=== PATIENT | male | born 1970 | race Hispanic/Latino ===

== ENCOUNTER 2020-06-10 23:01 | Inpatient (IN) | payer OTHER ==
[~2020-06-10] VITALS: Ht 170.2 cm; Wt 93.5 kg
[2020-06-11 00:36] LABS: CREATININE 1.3 mg/dL (0.5-1.5)
[2020-06-11 00:38] LABS: INR 1.41 (0.85-1.15); PROTHROMBIN TIME 14.6 SEC (9.6-11.6)
[2020-06-11] MEDS ORDERED: ACETAMINOPHEN EXTRA STRENGTH 500 MG TABLET ONE (00:38)
[2020-06-11 00:40] LABS: ALBUMIN 1.7 g/dL (3.5-5.0); BILIRUBIN,DIRECT 0.2 mg/dL (0.0-0.3); BILIRUBIN,TOTAL 0.6 mg/dL (0.2-1.0); MAGNESIUM 1.5 mg/dL (1.80-2.40); PARTIAL THROMBOPLASTIN TIME 33.2 SEC (26.3-35.5); PHOSPHORUS 3.7 mg/dL (2.5-4.9); TOTAL PROTEIN, SERUM 6.2 g/dL (6.0-8.3)
[2020-06-11 01:02] LABS: BASOPHILS % (AUTO) 0.5 % (0.0-5.0); EOSINOPHILS % (AUTO) 3.1 % (0.0-8.0); MEAN CORPUSCULAR HEMOGLOBIN 18.4 pg (27.0-33.0); MEAN CORPUSCULAR HGB CONC 26.6 g/dL (32.0-36.0); MEAN CORPUSCULAR VOLUME 69.1 fL (79-99); MONOCYTES % (AUTO) 6.2 % (3.0-13.0); NEUTROPHILS % (AUTO) 72.7 % (40.0-77.0); PLATELET COUNT (AUTO) 167 K/uL (130-400); RED BLOOD CELL COUNT(AUTO) 2.88 MIL/uL (4.50-6.20); RED CELL DISTRIBUTION WIDTH 18.4 % (11.0-15.5); WHITE BLOOD COUNT (AUTO) 9.2 K/uL (4.8-10.8)
[2020-06-11 01:04] LABS: HEMATOCRIT 19.9 % (42-54)
[2020-06-11] MEDS ORDERED: PANTOPRAZOLE 40 MG/VIAL ONE ×2 (02:27→02:28)
[2020-06-11] MEDS ORDERED: SODIUM CHLORIDE 0.9% 200 ML IV ONE (02:29)
[2020-06-11] MEDS ORDERED: ONDANSETRON HCL 4 MG/2 ML VIAL IV PRN (03:30)
[2020-06-11] MEDS ORDERED: ACETAMINOPHEN 325 MG TAB PO PRN ×2 (03:30)
[2020-06-11] MEDS: LEVOFLOXACIN 500 MG/D5W 100 ML 100 ML IV SCH (06:00)
[2020-06-11] MEDS ORDERED: SODIUM CHLORIDE 0.9% 250 ML IV ONE (06:23)
[2020-06-11] MEDS ORDERED: ALBUMIN (HUMAN) 25% 200 ML IV SCH (09:00)
[2020-06-11 09:03] LABS: APPEARANCE,URINE Clear (CLEAR); BILIRUBIN,URINE Negative (NEGATIVE); COLOR,URINE Yellow (YELLOW); GLUCOSE, URINE (UA) Negative (NEGATIVE); KETONES,URINE Negative (NEGATIVE); LEUKOCYTE ESTERASE ,URINE Negative (NEGATIVE); NITRATE,URINE Negative (NEGATIVE); OCCULT BLOOD,URINE Negative (NEGATIVE); PROTEIN,URINE Negative (NEGATIVE)
[2020-06-11 09:09] LABS: AMPHET/METH SCREEN,URINE NEGATIVE (NEGATIVE); BARBITURATE SCREEN, URINE NEGATIVE (NEGATIVE); BENZODIAZEPINES SCREEN,URINE NEGATIVE (NEGATIVE); CANNABINOID SCREEN,URINE NEGATIVE (NEGATIVE); COCAINE SCREEN,URINE NEGATIVE (NEGATIVE); OPIATE SCREEN,URINE NEGATIVE (NEGATIVE); PHENCYCLIDINE SCREEN,URINE NEGATIVE (NEGATIVE)
[2020-06-11] MEDS ORDERED: ALBUMIN (HUMAN) 25% 200 ML IV ONE (09:31)
[2020-06-11 11:45] VITALS: BP 96/61
[2020-06-11] MEDS ORDERED: PEG 3350/NA SULF,BICARB,CL/KCL 4000 ML SOLN PO SCH (12:45)
[2020-06-11 13:37] LABS: HEMATOCRIT 24.2 % (42-54)
[2020-06-11 13:50] LABS: MAGNESIUM 1.6 mg/dL (1.80-2.40); POTASSIUM 3.2 mmol/L (3.5-5.1)
[2020-06-11] MEDS: PANTOPRAZOLE SODIUM 80 MG in SODIUM CHLORIDE 0.9% 100 ML IV SCH (13:55)
[2020-06-11] MEDS: OCTREOTIDE ACETATE 1,250 MCG in SODIUM CHLORIDE 0.9% 250 ML IV SCH (13:56)
[2020-06-11] MEDS: POTASSIUM CHLORIDE 20MEQ/100ML 100 ML IV PRN ×2 (14:08→17:07)
[2020-06-11] MEDS: MAGNESIUM 2GM PREMIX 50ML 50 ML IV PRN (14:08)
[2020-06-11 15:02] LABS: ALBUMIN,BODY FLUID 0.4 g/dL
[2020-06-11 16:25] VITALS: BP 97/57
[2020-06-11 16:49] LABS: HEMATOCRIT 23.9 % (42-54)
[2020-06-11] MEDS: LIDOCAINE HCL-MPF 1% 2ML VIAL IV PRN (17:09)
[2020-06-11 17:59] LABS: APPEARANCE BODY FLUID SLIGHTLY CLOUDY (CLEAR); COLOR,BODY FLUID LT YELLOW (LT YELLOW); SPECIMENTYPE,BODY FLUID ASCITES; TOTAL VOLUME,BODY FLUID 1600 mL
[2020-06-11 18:01] LABS: BODY FLUID WBC 22 /cu. mm.
[2020-06-11 18:02] LABS: BODY FLUID RBC 10 /cu. mm.
[2020-06-11 18:19] LABS: BF LYMPHOCYTE 11 %; BF MONOCYTE 3 %
[2020-06-11] MEDS ORDERED: LISI1TAB51 PO (18:54)
[2020-06-11 20:00] VITALS: BP 99/62
[2020-06-11] MEDS ORDERED: SODIUM CHLORIDE 0.9% 500ML 500 ML IV ONE (23:27)
[2020-06-12] VITALS (26 sets, daily range): BP systolic 81–125; BP diastolic 50–70
[2020-06-12] MEDS: LEVOFLOXACIN 500 MG/D5W 100 ML 100 ML IV SCH (06:38)
[2020-06-12] MEDS: PANTOPRAZOLE SODIUM 80 MG in SODIUM CHLORIDE 0.9% 100 ML IV SCH ×2 (08:26→17:25)
[2020-06-12 11:24] LABS: HEMATOCRIT 28.5 % (42-54)
[2020-06-12] MEDS ORDERED: COMPOUND IV REFRIGERATED 1 EACH IVSOLN MISC PRN (12:30)
[2020-06-12] MEDS ORDERED: PROPOFOL 10 MG/ML 20ML VIAL IV ONE (12:41)
[2020-06-12] MEDS ORDERED: EPHEDRINE SULFATE 50 MG/ML AMPULE ONE (12:43)
[2020-06-12 16:31] LABS: MAGNESIUM 1.7 mg/dL (1.80-2.40); POTASSIUM 3.3 mmol/L (3.5-5.1)
[2020-06-12] MEDS: POTASSIUM CHLORIDE 20MEQ/100ML 100 ML IV PRN (17:26)
[2020-06-12] MEDS: LIDOCAINE HCL-MPF 1% 2ML VIAL IV PRN (17:26)
[2020-06-12] MEDS: MAGNESIUM 2GM PREMIX 50ML 50 ML IV PRN (17:26)
[2020-06-13] VITALS (7 sets, daily range): BP systolic 94–145; BP diastolic 58–75
[2020-06-13] MEDS: LEVOFLOXACIN 500 MG/D5W 100 ML 100 ML IV SCH (06:05)
[2020-06-13] MEDS: PANTOPRAZOLE SODIUM 80 MG in SODIUM CHLORIDE 0.9% 100 ML IV SCH (09:09)
[2020-06-13] MEDS: OCTREOTIDE ACETATE 1,250 MCG in SODIUM CHLORIDE 0.9% 250 ML IV SCH (09:10)
[2020-06-14 04:00] VITALS: BP 98/68
[2020-06-14] MEDS: LEVOFLOXACIN 500 MG/D5W 100 ML 100 ML IV SCH (05:40)
[2020-06-14 08:01] VITALS: BP 91/65
[2020-06-14 11:47] VITALS: BP 108/72
[2020-06-14 15:39] VITALS: BP 96/68
[2020-06-14 19:31] VITALS: BP 110/54
[2020-06-14 23:36] VITALS: BP 95/64
[2020-06-15 03:56] VITALS: BP 96/67
[2020-06-15] MEDS: LEVOFLOXACIN 500 MG/D5W 100 ML 100 ML IV SCH (05:32)
[2020-06-15 05:49] LABS: BASOPHILS % (AUTO) 0.9 % (0.0-5.0); EOSINOPHILS % (AUTO) 5.7 % (0.0-8.0); HEMATOCRIT 30.7 % (42-54); MEAN CORPUSCULAR HEMOGLOBIN 21.8 pg (27.0-33.0); MEAN CORPUSCULAR HGB CONC 29.3 g/dL (32.0-36.0); MEAN CORPUSCULAR VOLUME 74.3 fL (79-99); MONOCYTES % (AUTO) 6.4 % (3.0-13.0); NEUTROPHILS % (AUTO) 60.7 % (40.0-77.0); PLATELET COUNT (AUTO) 170 K/uL (130-400); RED BLOOD CELL COUNT(AUTO) 4.13 MIL/uL (4.50-6.20); RED CELL DISTRIBUTION WIDTH 20.2 % (11.0-15.5); WHITE BLOOD COUNT (AUTO) 6.7 K/uL (4.8-10.8)
[2020-06-15 06:17] LABS: ALBUMIN 1.4 g/dL (3.5-5.0); BILIRUBIN,TOTAL 0.7 mg/dL (0.2-1.0); CREATININE 0.8 mg/dL (0.5-1.5); POTASSIUM 3.2 mmol/L (3.5-5.1)
[2020-06-15 07:21] LABS: INR 1.3 (0.85-1.15); PROTHROMBIN TIME 13.6 SEC (9.6-11.6)
[2020-06-15 07:22] LABS: PARTIAL THROMBOPLASTIN TIME 38.7 SEC (26.3-35.5)
[2020-06-15 08:13] VITALS: BP 97/61
[2020-06-15] MEDS: LIDOCAINE HCL-MPF 1% 2ML VIAL IV PRN ×2 (09:40→17:47)
[2020-06-15] MEDS: POTASSIUM CHLORIDE 20MEQ/100ML 100 ML IV PRN ×2 (09:40→17:47)
[2020-06-15 11:40] VITALS: BP 100/72
[2020-06-15 16:54] VITALS: BP 100/74
[2020-06-15 20:19] VITALS: BP 96/68
[2020-06-15 23:23] VITALS: BP 92/67
[2020-06-16] VITALS (13 sets, daily range): BP systolic 87–117; BP diastolic 46–68
[2020-06-16] MEDS: MAGNESIUM 2GM PREMIX 50ML 50 ML IV PRN (03:33)
[2020-06-16] MEDS: LEVOFLOXACIN 500 MG/D5W 100 ML 100 ML IV SCH (05:49)
[2020-06-16 07:24] LABS: HEMATOCRIT 30.8 % (42-54); MEAN CORPUSCULAR HEMOGLOBIN 22.1 pg (27.0-33.0); MEAN CORPUSCULAR HGB CONC 29.5 g/dL (32.0-36.0); MEAN CORPUSCULAR VOLUME 74.9 fL (79-99); RED BLOOD CELL COUNT(AUTO) 4.11 MIL/uL (4.50-6.20); RED CELL DISTRIBUTION WIDTH 21.1 % (11.0-15.5); WHITE BLOOD COUNT (AUTO) 6.8 K/uL (4.8-10.8)
[2020-06-16 07:31] LABS: CREATININE 0.8 mg/dL (0.5-1.5); POTASSIUM 3.9 mmol/L (3.5-5.1)
[2020-06-16 07:44] LABS: INR 1.32 (0.85-1.15); PROTHROMBIN TIME 13.8 SEC (9.6-11.6)
[2020-06-16 07:46] LABS: PARTIAL THROMBOPLASTIN TIME 39.4 SEC (26.3-35.5)
[2020-06-16] MEDS ORDERED: FERROUS SULFATE 325 MG TABLET.DR PO SCH (09:00)
[2020-06-16] MEDS ORDERED: ALBUMIN (HUMAN) 25% 200 ML IV SCH (10:15)
[2020-06-16 12:37] LABS: APPEARANCE BODY FLUID CLEAR (CLEAR); COLOR,BODY FLUID YELLOW (LT YELLOW); SPECIMENTYPE,BODY FLUID ASCITES
[2020-06-16 12:38] LABS: BODY FLUID RBC 34 /cu. mm.; BODY FLUID WBC 49 /cu. mm.; TOTAL VOLUME,BODY FLUID 15000 mL
[2020-06-16 12:54] LABS: BF EOSINOPHIL 1 %; BF LYMPHOCYTE 22 %; BF MESOTHELIAL 28 %; BF MONOCYTE 29 %
[2020-06-16] MEDS ORDERED: CLIN300C10 PO (20:13)
[2020-06-16] MEDS ORDERED: FERR324T4 PO (20:14)
== END 2020-06-17 00:40 | disposition home or self-care (01) | DRG 432 ==
LOC: EDH 23:01 → EDHIP 23:02 → 4CH 06-11 11:54
PROVIDERS: ADMIT Family Medicine; ATTEND Family Medicine
PROC: 0W9G3ZZ Drainage of Peritoneal Cavity, Percutaneous Approach (ICD-10-PCS; 2020-06-11)
PROC: 0DJD8ZZ Inspection of Lower Intestinal Tract, Via Natural or Artificial Opening Endoscopic (ICD-10-PCS; 2020-06-12)
PROC: 0DB98ZX Excision of Duodenum, Via Natural or Artificial Opening Endoscopic, Diagnostic (ICD-10-PCS; 2020-06-12)
PROC: 0DB68ZZ Excision of Stomach, Via Natural or Artificial Opening Endoscopic (ICD-10-PCS; 2020-06-12)
PROC: 30233K1 Transfusion of Nonautologous Frozen Plasma into Peripheral Vein, Percutaneous Approach (ICD-10-PCS; principal; 2020-06-13)
PROC: 30233N1 Transfusion of Nonautologous Red Blood Cells into Peripheral Vein, Percutaneous Approach (ICD-10-PCS; 2020-06-13)
PROC: 0W9G3ZZ Drainage of Peritoneal Cavity, Percutaneous Approach (ICD-10-PCS; 2020-06-16)
DX: K70.31 Alcoholic cirrhosis of liver with ascites (principal); E43 Unspecified severe protein-calorie malnutrition; K76.6 Portal hypertension; E87.6 Hypokalemia; E83.42 Hypomagnesemia; K31.89 Other diseases of stomach and duodenum; K31.7 Polyp of stomach and duodenum; D50.9 Iron deficiency anemia, unspecified; K29.50 Unspecified chronic gastritis without bleeding; I10 Essential (primary) hypertension; Z20.828 Contact with and (suspected) exposure to other viral communicable diseases; S00.03XA Contusion of scalp, initial encounter; W19.XXXA Unspecified fall, initial encounter; Y93.89 Activity, other specified; Y92.89 Other specified places as the place of occurrence of the external cause; Y99.8 Other external cause status; Z88.0 Allergy status to penicillin
CPT/HCPCS: 36415; 43239; 43251; 45378; 49083; 70450; 71045; 72125; 80048; 80053; 80076; 80305; 81003; 82040; 82042; 83735; 83880; 84100; 84132; 84157; 84484; 85014; 85018; 85025; 85027; 85610; 85730; 86850; 86900; 86901; 86923; 86927; 87071; 87077; 87186; 87205; 87426; 89051; 96365; 97039; C9113; G0378; J1956; J2354; J2405; J2704; J3475; J3480; J3490; J7030; J7040; J7050; P9016; P9017; P9046; U0003

== ENCOUNTER → 2020-07-18 | Outpatient (CLI) | payer SELFPAY ==
[~2020-07-18] MED LIST: ALBUMIN (HUMAN) 25% 200 ML IV SCH; CLIN300C10 PO; FERR324T4 PO; FERR325T22 PO; FURO20TA4 PO; LISI1TAB51 PO; PANT40TA54 PO; POTA20TA82 PO; SPIR50TA5 PO; SUCR1TAB2 PO
[2020-07-18 10:18] LABS: BASOPHILS % (AUTO) 1.1 % (0.0-5.0); EOSINOPHILS % (AUTO) 7.9 % (0.0-8.0); HEMATOCRIT 26.5 % (42-54); MEAN CORPUSCULAR HEMOGLOBIN 24.2 pg (27.0-33.0); MEAN CORPUSCULAR HGB CONC 29.4 g/dL (32.0-36.0); MEAN CORPUSCULAR VOLUME 82.3 fL (79-99); MONOCYTES % (AUTO) 5.3 % (3.0-13.0); NEUTROPHILS % (AUTO) 60.5 % (40.0-77.0); PLATELET COUNT (AUTO) 260 K/uL (130-400); RED BLOOD CELL COUNT(AUTO) 3.22 MIL/uL (4.50-6.20); RED CELL DISTRIBUTION WIDTH 20.7 % (11.0-15.5); WHITE BLOOD COUNT (AUTO) 5.5 K/uL (4.8-10.8)
[2020-07-18 10:32] LABS: INR 1.24 (0.85-1.15); PROTHROMBIN TIME 13.3 SEC (9.6-11.6)
[2020-07-18 10:33] LABS: ALBUMIN 1.9 g/dL (3.5-5.0); BILIRUBIN,TOTAL 0.8 mg/dL (0.2-1.0); POTASSIUM 4.8 mmol/L (3.5-5.1); TOTAL PROTEIN, SERUM 6.5 g/dL (6.0-8.3)
[2020-07-18 16:39] LABS: ALBUMIN,BODY FLUID < 0.6 g/dL
[2020-07-18 17:20] LABS: APPEARANCE BODY FLUID SLIGHTLY CLOUDY (CLEAR); COLOR,BODY FLUID YELLOW (LT YELLOW); SPECIMENTYPE,BODY FLUID ASCITES; TOTAL VOLUME,BODY FLUID 15000 mL
[2020-07-18 17:21] LABS: BODY FLUID RBC 3 /cu. mm.; BODY FLUID WBC 17 /cu. mm.
[2020-07-18 17:23] LABS: BF BASOPHIL 1 %; BF LYMPHOCYTE 77 %; BF MESOTHELIAL 11 %; BF MONOCYTE 3 %
== END ==
LOC: RAH 08:58
PROVIDERS: ATTEND Internal Medicine Gastroenterology
DX: K70.31 Alcoholic cirrhosis of liver with ascites (principal); E43 Unspecified severe protein-calorie malnutrition; K76.6 Portal hypertension; I10 Essential (primary) hypertension; D50.9 Iron deficiency anemia, unspecified; Z88.1 Allergy status to other antibiotic agents; Z79.01 Long term (current) use of anticoagulants
CPT/HCPCS: 36415; 49083; 80053; 82042; 84157; 85025; 85610; 87071; 87205; 88112; 88305; 89051; A4215; 96365; P9046

== ENCOUNTER 2020-08-04 17:03 | Observation (INO) | payer OTHER, SELFPAY ==
[~2020-08-04] VITALS: Ht 172.7 cm; Wt 68.0 kg
[~2020-08-04 17:03] MED LIST changes: -ALBUMIN (HUMAN) 25% 200 ML IV SCH; -FERR325T22 PO; -FURO20TA4 PO; -PANT40TA54 PO; -POTA20TA82 PO; -SPIR50TA5 PO; -SUCR1TAB2 PO
[2020-08-04 18:31] LABS: BASOPHILS % (AUTO) 1.2 % (0.0-5.0); EOSINOPHILS % (AUTO) 0.5 % (0.0-8.0); LYMPHOCYTES % (AUTO) 18.7 % (21.0-51.0); MEAN CORPUSCULAR HEMOGLOBIN 26.3 pg (27.0-33.0); MEAN CORPUSCULAR HGB CONC 31.8 g/dL (32.0-36.0); MEAN CORPUSCULAR VOLUME 82.7 fL (79-99); MONOCYTES % (AUTO) 4.9 % (3.0-13.0); NEUTROPHILS % (AUTO) 74.4 % (40.0-77.0); PLATELET COUNT (AUTO) 266 K/uL (130-400); RED BLOOD CELL COUNT(AUTO) 4.11 MIL/uL (4.50-6.20); RED CELL DISTRIBUTION WIDTH 20.3 % (11.0-15.5); WHITE BLOOD COUNT (AUTO) 6.5 K/uL (4.8-10.8)
[2020-08-04] MEDS ORDERED: CEFTRIAXONE SODIUM 1 GM ONE (18:41)
[2020-08-04] MEDS ORDERED: AZITHROMYCIN 500MG+NS 250ML 250 ML IV ONE (18:41)
[2020-08-04] MEDS ORDERED: SODIUM CHLORIDE 0.9% 50 ML IV ONE ×2 (18:42→19:38)
[2020-08-04 18:44] LABS: INR 1.27 (0.85-1.15); PROTHROMBIN TIME 13.5 SEC (9.6-11.6)
[2020-08-04 18:45] LABS: PARTIAL THROMBOPLASTIN TIME 34.5 SEC (26.3-35.5)
[2020-08-04 18:48] LABS: ALBUMIN 2.1 g/dL (3.5-5.0); BILIRUBIN,TOTAL 0.8 mg/dL (0.2-1.0); CREATININE 1.1 mg/dL (0.5-1.5); POTASSIUM 3.9 mmol/L (3.5-5.1); TOTAL PROTEIN, SERUM 6.3 g/dL (6.0-8.3)
[2020-08-04] MEDS ORDERED: SODIUM CHLORIDE 0.9% 1000ML 1,000 ML IV ONE (19:37)
[2020-08-04] MEDS ORDERED: ACETAMINOPHEN 325 MG TAB PO PRN (21:15)
[2020-08-04] MEDS ORDERED: ONDANSETRON HCL 4 MG/2 ML VIAL IV PRN (21:15)
[2020-08-05] MEDS ORDERED: FAMOTIDINE/PF 20 MG/2 ML VIAL IV SCH (09:00)
[2020-08-05] MEDS ORDERED: LACTULOSE 20 GM/30 ML UDCUP ONE ×2 (09:55→21:16)
[2020-08-05] MEDS ORDERED: FUROSEMIDE 10 MG/ML 4ML VIAL ONE (09:55)
[2020-08-05] MEDS ORDERED: FAMOTIDINE/PF 20 MG/2 ML VIAL IV ONE ×2 (09:56→21:17)
[2020-08-05] MEDS ORDERED: SPIRONOLACTONE 25 MG TAB ONE ×2 (09:56→21:17)
[2020-08-05] MEDS ORDERED: ALBUMIN (HUMAN) 25% 200 ML IV ONE (10:53)
[2020-08-05 14:31] LABS: GLUCOSE,BODY FLUID 82 mg/dL (1-40)
[2020-08-05 15:32] LABS: APPEARANCE BODY FLUID CLEAR (CLEAR); COLOR,BODY FLUID YELLOW (LT YELLOW); SPECIMENTYPE,BODY FLUID ASCITES
[2020-08-05 15:33] LABS: BODY FLUID RBC 8 /cu. mm.; BODY FLUID WBC 9 /cu. mm.; TOTAL VOLUME,BODY FLUID 15000 mL
[2020-08-05 16:35] LABS: BF EOSINOPHIL 1 %; BF LYMPHOCYTE 50 %; BF MESOTHELIAL 25 %; BF MONOCYTE 3 %
[2020-08-05 19:30] VITALS: BP 125/59
[2020-08-05] MEDS: LACTULOSE 20 GM/30 ML UDCUP PO SCH (21:00)
[2020-08-05] MEDS: FAMOTIDINE/PF 20 MG/2 ML VIAL IV SCH (21:00)
[2020-08-05] MEDS: SPIRONOLACTONE 25 MG TAB PO SCH (21:00)
[2020-08-05] MEDS: FUROSEMIDE 10 MG/ML 4ML VIAL IVP SCH (21:00)
[2020-08-05] MEDS ORDERED: FUROSEMIDE 10 MG/ML 2ML VIAL ONE (21:16)
[2020-08-05] MEDS ORDERED: FURO20TA4 PO (23:00)
[2020-08-05] MEDS ORDERED: POTA20TA82 PO (23:00)
[2020-08-05] MEDS ORDERED: SPIR50TA5 PO (23:00)
[2020-08-05] MEDS ORDERED: PANT40TA54 PO (23:00)
[2020-08-05] MEDS ORDERED: FERR325T22 PO (23:00)
[2020-08-05] MEDS ORDERED: SUCR1TAB2 PO (23:00)
[2020-08-06 00:54] VITALS: BP 92/64
[2020-08-06 04:45] VITALS: BP 91/57
[2020-08-06 06:08] LABS: BASOPHILS % (AUTO) 1.3 % (0.0-5.0); EOSINOPHILS % (AUTO) 1.7 % (0.0-8.0); HEMATOCRIT 27.1 % (42-54); LYMPHOCYTES % (AUTO) 28.8 % (21.0-51.0); MEAN CORPUSCULAR HEMOGLOBIN 26.5 pg (27.0-33.0); MEAN CORPUSCULAR HGB CONC 31.7 g/dL (32.0-36.0); MEAN CORPUSCULAR VOLUME 83.6 fL (79-99); MONOCYTES % (AUTO) 5.7 % (3.0-13.0); NEUTROPHILS % (AUTO) 62.3 % (40.0-77.0); PLATELET COUNT (AUTO) 178 K/uL (130-400); RED BLOOD CELL COUNT(AUTO) 3.24 MIL/uL (4.50-6.20); RED CELL DISTRIBUTION WIDTH 20.3 % (11.0-15.5); WHITE BLOOD COUNT (AUTO) 4.7 K/uL (4.8-10.8)
[2020-08-06 06:20] LABS: CREATININE 0.9 mg/dL (0.5-1.5); POTASSIUM 3.1 mmol/L (3.5-5.1)
[2020-08-06 08:29] VITALS: BP 93/63
[2020-08-06] MEDS: LACTULOSE 20 GM/30 ML UDCUP PO SCH (09:00)
[2020-08-06] MEDS: SPIRONOLACTONE 25 MG TAB PO SCH (09:28)
[2020-08-06] MEDS: FUROSEMIDE 10 MG/ML 4ML VIAL IVP SCH (09:29)
[2020-08-06] MEDS: FAMOTIDINE/PF 20 MG/2 ML VIAL IV SCH (09:35)
[2020-08-06 11:48] VITALS: BP 106/73
[2020-08-06] MEDS ORDERED: POTASSIUM CHLORIDE 20 MEQ ERTAB PO SCH (12:15)
== END 2020-08-06 16:45 | disposition home or self-care (01) ==
LOC: EDH 17:03 → EDHIP 17:04 → 3CH 08-05 21:22
PROVIDERS: ADMIT Internal Medicine; ATTEND Internal Medicine
DX: K70.31 Alcoholic cirrhosis of liver with ascites (principal); E87.70 Fluid overload, unspecified; D68.4 Acquired coagulation factor deficiency; I10 Essential (primary) hypertension; F10.20 Alcohol dependence, uncomplicated; Z79.899 Other long term (current) drug therapy; Z88.0 Allergy status to penicillin
CPT/HCPCS: 36415 ×2; 49083; 71045; 80048; 80053; 82140; 82945; 83605; 83615; 83880; 84145; 84157; 84484; 85025 ×2; 85610; 85730; 87071; 87205; 89051; 93005; 96374; 96375; 99285; A4215; G0378 ×43; J0456; J0696; J1940 ×3; J3490 ×3; J7030; P9046; 96365

== ENCOUNTER 2020-08-19 15:01 | Emergency (ER) | payer OTHER, SELFPAY ==
[~2020-08-19 15:01] MED LIST changes: -ALBUMIN (HUMAN) 25% 200 ML IV SCH; +POTA-202 PO; -POTA20TA82 PO
[2020-08-19 16:14] LABS: BASOPHILS % (AUTO) 0.5 % (0.0-5.0); EOSINOPHILS % (AUTO) 0.1 % (0.0-8.0); HEMATOCRIT 36.4 % (42-54); LYMPHOCYTES % (AUTO) 12.1 % (21.0-51.0); MEAN CORPUSCULAR HEMOGLOBIN 27.5 pg (27.0-33.0); MEAN CORPUSCULAR HGB CONC 32.4 g/dL (32.0-36.0); MEAN CORPUSCULAR VOLUME 84.8 fL (79-99); MONOCYTES % (AUTO) 3.3 % (3.0-13.0); NEUTROPHILS % (AUTO) 83.7 % (40.0-77.0); PLATELET COUNT (AUTO) 254 K/uL (130-400); RED BLOOD CELL COUNT(AUTO) 4.29 MIL/uL (4.50-6.20); RED CELL DISTRIBUTION WIDTH 19.7 % (11.0-15.5); WHITE BLOOD COUNT (AUTO) 7.6 K/uL (4.8-10.8)
[2020-08-19 16:28] LABS: POTASSIUM 3.2 mmol/L (3.5-5.1)
[2020-08-19 16:33] LABS: BILIRUBIN,TOTAL 0.9 mg/dL (0.2-1.0); TOTAL PROTEIN, SERUM 6.5 g/dL (6.0-8.3)
[2020-08-19 16:42] LABS: INR 1.26 (0.85-1.15); PROTHROMBIN TIME 13.4 SEC (9.6-11.6)
[2020-08-19 16:43] LABS: PARTIAL THROMBOPLASTIN TIME 34.2 SEC (26.3-35.5)
[2020-08-19 16:52] LABS: APPEARANCE,URINE CLOUDY (CLEAR); BILIRUBIN,URINE NEGATIVE (NEGATIVE); COLOR,URINE YELLOW (YELLOW); GLUCOSE, URINE (UA) NEGATIVE (NEGATIVE); KETONES,URINE NEGATIVE (NEGATIVE); LEUKOCYTE ESTERASE ,URINE SMALL (NEGATIVE); NITRATE,URINE NEGATIVE (NEGATIVE); OCCULT BLOOD,URINE NEGATIVE (NEGATIVE); PROTEIN,URINE TRACE mg/dL (NEGATIVE); UROBILINOGEN,URINE 0.2 mg/dL (0.2-1.0)
[2020-08-19 17:32] LABS: BACTERIA,URINE Few /HPF (None Seen); MUCUS,URINE Moderate LPF (None Seen); SQUAMOUS EPITHELIAL CELL,UR Few /HPF (0-2); YEAST,URINE BUDDING Few /HPF (None Seen)
[2020-08-19] MEDS ORDERED: POTASSIUM CHLORIDE 10% ELIXIR 20 MEQ/15 ML UDCUP ONE (17:34)
[2020-08-19] MEDS ORDERED: MAGNESIUM OXIDE 400 MG TABLET PO ONE (18:00)
== END 2020-08-19 19:37 | disposition home or self-care (01) ==
LOC: EDH 15:01
DX: K70.31 Alcoholic cirrhosis of liver with ascites (principal); R06.00 Dyspnea, unspecified; E83.42 Hypomagnesemia; E87.6 Hypokalemia; I10 Essential (primary) hypertension; Z88.0 Allergy status to penicillin
CPT/HCPCS: 36415; 71045; 80053; 81001; 83605; 83735; 85025; 85610; 85730; 87088; 93005

== ENCOUNTER → 2020-08-19 | Outpatient (CLI) | payer OTHER, SELFPAY ==
[~2020-08-19] MED LIST changes: +ALBUMIN (HUMAN) 25% 200 ML IV SCH; -CLIN300C10 PO; -FERR324T4 PO; +FERR325T22 PO; +FURO20TA4 PO; -LISI1TAB51 PO; +PANT40TA54 PO; +POTA20TA82 PO; +SPIR50TA5 PO; +SUCR1TAB2 PO
[2020-08-19 09:50] LABS: BASOPHILS % (AUTO) 1.2 % (0.0-5.0); EOSINOPHILS % (AUTO) 0.6 % (0.0-8.0); HEMATOCRIT 33.1 % (42-54); LYMPHOCYTES % (AUTO) 23.2 % (21.0-51.0); MEAN CORPUSCULAR HEMOGLOBIN 27.3 pg (27.0-33.0); MEAN CORPUSCULAR HGB CONC 31.7 g/dL (32.0-36.0); MONOCYTES % (AUTO) 4.9 % (3.0-13.0); NEUTROPHILS % (AUTO) 69.8 % (40.0-77.0); PLATELET COUNT (AUTO) 249 K/uL (130-400); RED BLOOD CELL COUNT(AUTO) 3.85 MIL/uL (4.50-6.20); RED CELL DISTRIBUTION WIDTH 20.3 % (11.0-15.5); WHITE BLOOD COUNT (AUTO) 6.9 K/uL (4.8-10.8)
[2020-08-19 09:59] LABS: INR 1.19 (0.85-1.15); PROTHROMBIN TIME 12.8 SEC (9.6-11.6)
[2020-08-19 10:05] LABS: ALBUMIN 2.3 g/dL (3.5-5.0); BILIRUBIN,TOTAL 0.6 mg/dL (0.2-1.0); CREATININE 1.2 mg/dL (0.5-1.5); POTASSIUM 3.3 mmol/L (3.5-5.1); TOTAL PROTEIN, SERUM 7.2 g/dL (6.0-8.3)
[2020-08-19 15:31] LABS: ALBUMIN,BODY FLUID < 0.6 g/dL
[2020-08-19 16:22] LABS: COLOR,BODY FLUID YELLOW (LT YELLOW); SPECIMENTYPE,BODY FLUID ASCITES
[2020-08-19 16:23] LABS: APPEARANCE BODY FLUID CLOUDY (CLEAR)
[2020-08-19 16:24] LABS: TOTAL VOLUME,BODY FLUID 15000 mL
[2020-08-19 16:25] LABS: BODY FLUID RBC 2 /cu. mm.; BODY FLUID WBC 20 /cu. mm.
[2020-08-19 16:40] LABS: BF EOSINOPHIL 1 %; BF LYMPHOCYTE 29 %; BF MESOTHELIAL 41 %; BF MONOCYTE 6 %
== END | disposition home or self-care (01) ==
LOC: RAH 07:52
PROVIDERS: ATTEND Internal Medicine Gastroenterology
DX: K70.31 Alcoholic cirrhosis of liver with ascites (principal); E78.5 Hyperlipidemia, unspecified; K31.89 Other diseases of stomach and duodenum; D50.9 Iron deficiency anemia, unspecified; K76.0 Fatty (change of) liver, not elsewhere classified; Z98.890 Other specified postprocedural states; Z79.01 Long term (current) use of anticoagulants; Z72.89 Other problems related to lifestyle; Z79.899 Other long term (current) drug therapy; Z88.0 Allergy status to penicillin
CPT/HCPCS: 36415; 49083; 80053; 82042; 84157; 85025; 85610; 87071; 87205; 89051; A4215; 96365

== ENCOUNTER → 2020-09-02 | Outpatient (CLI) | payer SELFPAY ==
[~2020-09-02] MED LIST changes: +ALBUMIN (HUMAN) 25% 200 ML IV SCH; -POTA-202 PO; +POTA20TA82 PO
[2020-09-02 14:16] LABS: APPEARANCE BODY FLUID CLOUDY (CLEAR); COLOR,BODY FLUID LT YELLOW (LT YELLOW); SPECIMENTYPE,BODY FLUID ASCITES; TOTAL VOLUME,BODY FLUID 8000 mL
[2020-09-02 14:17] LABS: BODY FLUID RBC 10 /cu. mm.; BODY FLUID WBC 20 /cu. mm.
[2020-09-02 14:23] LABS: BF LYMPHOCYTE 33 %; BF MESOTHELIAL 61 %; BF MONOCYTE 1 %
== END ==
LOC: RAH 09:55
PROVIDERS: ATTEND Internal Medicine Gastroenterology
DX: R18.8 Other ascites (principal)
CPT/HCPCS: 49083; 89051; A4215; P9046; 96365

== ENCOUNTER → 2020-09-09 | Outpatient (CLI) | payer SELFPAY ==
[~2020-09-09] MED LIST changes: +ALBUMIN (HUMAN) 25% 200 ML IV ONE; -ALBUMIN (HUMAN) 25% 200 ML IV SCH
[2020-09-09 18:05] LABS: APPEARANCE BODY FLUID CLOUDY (CLEAR); COLOR,BODY FLUID LT YELLOW (LT YELLOW); SPECIMENTYPE,BODY FLUID ASCITES
[2020-09-09 18:06] LABS: BODY FLUID WBC 26 /cu. mm.; TOTAL VOLUME,BODY FLUID 7000 mL
[2020-09-09 18:07] LABS: BODY FLUID RBC 24 /cu. mm.
[2020-09-09 18:21] LABS: BF LYMPHOCYTE 47 %; BF MONOCYTE 10 %; BF OTHER CELLS 1
== END | disposition home or self-care (01) ==
LOC: RAH 07:21
PROVIDERS: ATTEND Internal Medicine Gastroenterology
DX: K70.31 Alcoholic cirrhosis of liver with ascites (principal); I10 Essential (primary) hypertension; E78.5 Hyperlipidemia, unspecified; Z79.01 Long term (current) use of anticoagulants; Z79.899 Other long term (current) drug therapy
CPT/HCPCS: 49083; 89051; 96365; A4215; P9046

== ENCOUNTER → 2020-09-16 | Outpatient (CLI) | payer OTHER ==
[~2020-09-16] MED LIST changes: -ALBUMIN (HUMAN) 25% 200 ML IV ONE; +ALBUMIN (HUMAN) 25% 200 ML IV SCH
[2020-09-16 16:00] LABS: APPEARANCE BODY FLUID CLOUDY (CLEAR); BODY FLUID RBC 14 /cu. mm.; BODY FLUID WBC 41 /cu. mm.; COLOR,BODY FLUID COLORLESS (LT YELLOW); SPECIMENTYPE,BODY FLUID ASCITES; TOTAL VOLUME,BODY FLUID 11000 mL
[2020-09-16 16:23] LABS: BF LYMPHOCYTE 32 %; BF MESOTHELIAL 53 %; BF MONOCYTE 2 %
== END | disposition home or self-care (01) ==
LOC: RAH 09:28
PROVIDERS: ATTEND Internal Medicine Gastroenterology
DX: K70.31 Alcoholic cirrhosis of liver with ascites (principal); K31.89 Other diseases of stomach and duodenum; K76.0 Fatty (change of) liver, not elsewhere classified; D50.9 Iron deficiency anemia, unspecified; Z79.899 Other long term (current) drug therapy; Z72.89 Other problems related to lifestyle
CPT/HCPCS: 49083; 89051; A4215; P9046; 96365

== ENCOUNTER → 2020-09-23 | Outpatient (CLI) | payer OTHER ==
[~2020-09-23] MED LIST changes: +SODIUM BICARB 50MEQ 50ML VIAL 50 ML ONE
[2020-09-23 09:21] LABS: HEMATOCRIT 33.6 % (42-54); MEAN CORPUSCULAR HEMOGLOBIN 26.9 pg (27.0-33.0); PLATELET COUNT (AUTO) 420 K/uL (130-400); RED BLOOD CELL COUNT(AUTO) 3.86 MIL/uL (4.50-6.20); RED CELL DISTRIBUTION WIDTH 14.5 % (11.0-15.5); WHITE BLOOD COUNT (AUTO) 9.1 K/uL (4.8-10.8)
[2020-09-23 09:35] LABS: ALBUMIN 2.7 g/dL (3.5-5.0); BILIRUBIN,TOTAL 0.8 mg/dL (0.2-1.0); TOTAL PROTEIN, SERUM 7.1 g/dL (6.0-8.3)
[2020-09-23 09:40] LABS: INR 1.15 (0.85-1.15); PROTHROMBIN TIME 12.4 SEC (9.6-11.6)
[2020-09-23 09:53] LABS: EOSINOPHILS % (MANUAL) 4 % (1-6); LYMPHOCYTES % (MANUAL) 36 % (22-44); MAN.DIFF COMMENT-IMPRESSION MANUAL DIFFERENTIAL; MONOCYTES % (MANUAL) 7 % (2-9); PLATELET MORPHOLOGY COMMENT ADEQUATE; SEGMENTED NEUTROPHILS % 53 % (40-70)
[2020-09-23 13:17] LABS: SPECIMENTYPE,BODY FLUID ASCITES
[2020-09-23 13:18] LABS: APPEARANCE BODY FLUID CLOUDY (CLEAR); BODY FLUID RBC 4 /cu. mm.; BODY FLUID WBC 47 /cu. mm.; COLOR,BODY FLUID OTHER (LT YELLOW); TOTAL VOLUME,BODY FLUID 12000 mL
[2020-09-23 13:41] LABS: BF LYMPHOCYTE 47 %; BF MESOTHELIAL 26 %; BF MONOCYTE 19 %
== END ==
LOC: RAH 07:36
PROVIDERS: ATTEND Internal Medicine Gastroenterology
DX: K70.31 Alcoholic cirrhosis of liver with ascites (principal); D50.9 Iron deficiency anemia, unspecified; K76.0 Fatty (change of) liver, not elsewhere classified; K31.89 Other diseases of stomach and duodenum; Z88.0 Allergy status to penicillin; Z79.899 Other long term (current) drug therapy
CPT/HCPCS: 36415; 49083; 80053; 85025; 85610; 89051; A4215; J3490; P9046; 96365

== ENCOUNTER → 2020-09-30 | Outpatient (CLI) | payer OTHER, SELFPAY ==
[~2020-09-30] MED LIST changes: +ALBUMIN (HUMAN) 25% 200 ML IV ONE; -ALBUMIN (HUMAN) 25% 200 ML IV SCH; -SODIUM BICARB 50MEQ 50ML VIAL 50 ML ONE
[2020-09-30 15:11] LABS: SPECIMENTYPE,BODY FLUID ASCITES
[2020-09-30 15:12] LABS: APPEARANCE BODY FLUID CLOUDY (CLEAR); BODY FLUID WBC 106 /cu. mm.; COLOR,BODY FLUID YELLOW (LT YELLOW); TOTAL VOLUME,BODY FLUID 12000 mL
[2020-09-30 15:13] LABS: BODY FLUID RBC 24 /cu. mm.
[2020-09-30 15:40] LABS: BF LYMPHOCYTE 30 %; BF MESOTHELIAL 17 %; BF MONOCYTE 2 %
== END ==
LOC: RAH 07:44
PROVIDERS: ATTEND Internal Medicine Gastroenterology
DX: K70.31 Alcoholic cirrhosis of liver with ascites (principal); K31.89 Other diseases of stomach and duodenum; D50.9 Iron deficiency anemia, unspecified; Z98.890 Other specified postprocedural states; Z79.899 Other long term (current) drug therapy
CPT/HCPCS: 49083; 87071; 87205; 89051; A4215; P9046; 96365

== ENCOUNTER 2020-10-03 07:09 | Emergency (ER) | payer OTHER, SELFPAY ==
[~2020-10-03 07:09] MED LIST changes: -ALBUMIN (HUMAN) 25% 200 ML IV ONE; +POTA-202 PO; -POTA20TA82 PO
[2020-10-03 08:10] LABS: BASOPHILS % (AUTO) 0.2 % (0.0-5.0); EOSINOPHILS % (AUTO) 0.3 % (0.0-8.0); HEMATOCRIT 32.9 % (42-54); LYMPHOCYTES % (AUTO) 12.7 % (21.0-51.0); MEAN CORPUSCULAR HEMOGLOBIN 27.3 pg (27.0-33.0); MEAN CORPUSCULAR HGB CONC 32.2 g/dL (32.0-36.0); MEAN CORPUSCULAR VOLUME 84.8 fL (79-99); MONOCYTES % (AUTO) 6.8 % (3.0-13.0); NEUTROPHILS % (AUTO) 79.5 % (40.0-77.0); PLATELET COUNT (AUTO) 418 K/uL (130-400); RED BLOOD CELL COUNT(AUTO) 3.88 MIL/uL (4.50-6.20); RED CELL DISTRIBUTION WIDTH 13.2 % (11.0-15.5); WHITE BLOOD COUNT (AUTO) 11.1 K/uL (4.8-10.8)
[2020-10-03 08:21] LABS: INR 1.31 (0.85-1.15); PROTHROMBIN TIME 13.9 SEC (9.6-11.6)
[2020-10-03 08:22] LABS: PARTIAL THROMBOPLASTIN TIME 34.5 SEC (26.3-35.5)
[2020-10-03 08:26] LABS: ALBUMIN 2.4 g/dL (3.5-5.0); BILIRUBIN,TOTAL 1.4 mg/dL (0.2-1.0); TOTAL PROTEIN, SERUM 6.5 g/dL (6.0-8.3)
[2020-10-03 08:42] LABS: POTASSIUM 2.9 mmol/L (3.5-5.1)
[2020-10-03] MEDS ORDERED: KCL 20 MEQ ERTAB PO ONE (08:59)
[2020-10-03] MEDS ORDERED: ALBUMIN (HUMAN) 25% 200 ML IV ONE (09:55)
== END 2020-10-03 14:32 | disposition home or self-care (01) ==
LOC: EDH 07:09
DX: K74.60 Unspecified cirrhosis of liver (principal); R18.8 Other ascites; E87.6 Hypokalemia; D64.9 Anemia, unspecified; I10 Essential (primary) hypertension; Z90.49 Acquired absence of other specified parts of digestive tract; Z87.891 Personal history of nicotine dependence; Z88.0 Allergy status to penicillin; Z79.899 Other long term (current) drug therapy
CPT/HCPCS: 36415; 49083; 80053; 85025; 85610; 85730; 96365; 99284; A4215; P9046; C1729

== ENCOUNTER → 2020-10-07 | Outpatient (CLI) | payer SELFPAY ==
[~2020-10-07] MED LIST changes: +ALBUMIN (HUMAN) 25% 200 ML IV SCH; -POTA-202 PO; +POTA20TA82 PO
[2020-10-07 14:19] LABS: APPEARANCE BODY FLUID SLIGHTLY CLOUDY (CLEAR); COLOR,BODY FLUID YELLOW (LT YELLOW); SPECIMENTYPE,BODY FLUID ASCITES; TOTAL VOLUME,BODY FLUID 8000 mL
[2020-10-07 14:20] LABS: BODY FLUID RBC 32 /cu. mm.; BODY FLUID WBC 145 /cu. mm.
[2020-10-07 14:42] LABS: BF EOSINOPHIL 1 %; BF LYMPHOCYTE 42 %; BF MESOTHELIAL 9 %; BF MONOCYTE 17 %
== END | disposition home or self-care (01) ==
LOC: RAH 07:38
PROVIDERS: ATTEND Internal Medicine Gastroenterology
DX: K70.31 Alcoholic cirrhosis of liver with ascites (principal); K76.0 Fatty (change of) liver, not elsewhere classified; K31.89 Other diseases of stomach and duodenum; D50.9 Iron deficiency anemia, unspecified; Z98.890 Other specified postprocedural states; Z79.899 Other long term (current) drug therapy; Z79.01 Long term (current) use of anticoagulants
CPT/HCPCS: 49083; 87071; 87205; 88112; 88305; 89051; A4215; P9046; 96365

== ENCOUNTER → 2020-10-14 | Outpatient (CLI) | payer SELFPAY ==
[2020-10-14 18:35] LABS: APPEARANCE BODY FLUID SLIGHTLY CLOUDY (CLEAR); COLOR,BODY FLUID LT YELLOW (LT YELLOW); SPECIMENTYPE,BODY FLUID ASCITES; TOTAL VOLUME,BODY FLUID 7000 mL
[2020-10-14 18:36] LABS: BODY FLUID RBC 17 /cu. mm.; BODY FLUID WBC 49 /cu. mm.
[2020-10-14 18:46] LABS: BF LYMPHOCYTE 88 %
== END | disposition home or self-care (01) ==
LOC: RAH 07:34
PROVIDERS: ATTEND Internal Medicine Gastroenterology
DX: R18.8 Other ascites (principal)
CPT/HCPCS: 49083; 87071; 87205; 89051; A4215; P9046; 96365

== ENCOUNTER → 2020-10-21 | Outpatient (CLI) | payer SELFPAY ==
[2020-10-21 14:22] LABS: SPECIMENTYPE,BODY FLUID ASCITES
[2020-10-21 14:24] LABS: APPEARANCE BODY FLUID TURBID (CLEAR); BODY FLUID WBC 77 /cu. mm.; COLOR,BODY FLUID YELLOW (LT YELLOW); TOTAL VOLUME,BODY FLUID 9500 mL
[2020-10-21 14:25] LABS: BODY FLUID RBC 19 /cu. mm.
[2020-10-21 14:26] LABS: BF LYMPHOCYTE 80 %; BF MONOCYTE 17 %
== END | disposition home or self-care (01) ==
LOC: RAH 07:40
PROVIDERS: ATTEND Internal Medicine Gastroenterology
DX: K70.31 Alcoholic cirrhosis of liver with ascites (principal); D50.9 Iron deficiency anemia, unspecified; K31.89 Other diseases of stomach and duodenum; K76.0 Fatty (change of) liver, not elsewhere classified; Z88.0 Allergy status to penicillin; Z79.899 Other long term (current) drug therapy
CPT/HCPCS: 49083; 87071; 87205; 89051; A4215; P9046; 96365

== ENCOUNTER → 2020-10-28 | Outpatient (CLI) | payer SELFPAY ==
[2020-10-28 10:39] LABS: APPEARANCE BODY FLUID TURBID (CLEAR); COLOR,BODY FLUID LT YELLOW (LT YELLOW); SPECIMENTYPE,BODY FLUID ASCITES; TOTAL VOLUME,BODY FLUID 9000 mL
[2020-10-28 10:40] LABS: BODY FLUID RBC 40 /cu. mm.; BODY FLUID WBC 80 /cu. mm.
[2020-10-28 11:39] LABS: BF LYMPHOCYTE 74 %; BF MESOTHELIAL 26 %
== END ==
LOC: RAH 07:37
PROVIDERS: ATTEND Internal Medicine Gastroenterology
DX: R18.8 Other ascites (principal)
CPT/HCPCS: 49083; 87071; 87205; 89051; A4215; P9046; 96365

== ENCOUNTER → 2020-11-04 | Outpatient (CLI) | payer SELFPAY ==
[2020-11-04 08:41] LABS: BASOPHILS % (AUTO) 0.7 % (0.0-5.0); EOSINOPHILS % (AUTO) 0.9 % (0.0-8.0); HEMATOCRIT 31.3 % (42-54); LYMPHOCYTES % (AUTO) 16.6 % (21.0-51.0); MEAN CORPUSCULAR HEMOGLOBIN 28.1 pg (27.0-33.0); MEAN CORPUSCULAR HGB CONC 32.3 g/dL (32.0-36.0); MEAN CORPUSCULAR VOLUME 86.9 fL (79-99); MONOCYTES % (AUTO) 6.4 % (3.0-13.0); NEUTROPHILS % (AUTO) 74.9 % (40.0-77.0); PLATELET COUNT (AUTO) 374 K/uL (130-400); RED CELL DISTRIBUTION WIDTH 15.1 % (11.0-15.5); WHITE BLOOD COUNT (AUTO) 8.8 K/uL (4.8-10.8)
[2020-11-04 08:58] LABS: INR 1.18 (0.85-1.15); PROTHROMBIN TIME 12.7 SEC (9.6-11.6)
[2020-11-04 09:18] LABS: ALBUMIN 2.7 g/dL (3.5-5.0); CREATININE 0.7 mg/dL (0.5-1.5); TOTAL PROTEIN, SERUM 7.5 g/dL (6.0-8.3)
[2020-11-04 09:25] LABS: POTASSIUM 2.8 mmol/L (3.5-5.1)
[2020-11-04 13:45] LABS: APPEARANCE BODY FLUID TURBID (CLEAR); SPECIMENTYPE,BODY FLUID ASCITES
[2020-11-04 13:47] LABS: BODY FLUID RBC 6 /cu. mm.; BODY FLUID WBC 73 /cu. mm.; COLOR,BODY FLUID OTHER (LT YELLOW); TOTAL VOLUME,BODY FLUID 9200 mL
[2020-11-04 14:10] LABS: BF LYMPHOCYTE 87 %; BF MESOTHELIAL 2 %; BF MONOCYTE 10 %
== END ==
LOC: RAH 07:51
PROVIDERS: ATTEND Internal Medicine Gastroenterology
DX: R18.8 Other ascites (principal)
CPT/HCPCS: 36415; 49083; 80053; 85025; 85610; 87071; 87205; 89051; A4215; P9046; 96365

== ENCOUNTER 2020-11-13 06:36 | Emergency (ER) | payer OTHER, SELFPAY ==
[~2020-11-13] VITALS: Ht 172.7 cm; Wt 77.1 kg
[~2020-11-13 06:36] MED LIST changes: -ALBUMIN (HUMAN) 25% 200 ML IV SCH
[2020-11-13 07:17] LABS: BASOPHILS % (AUTO) 0.5 % (0.0-5.0); EOSINOPHILS % (AUTO) 1.6 % (0.0-8.0); HEMATOCRIT 29.7 % (42-54); LYMPHOCYTES % (AUTO) 18.6 % (21.0-51.0); MEAN CORPUSCULAR HEMOGLOBIN 27.2 pg (27.0-33.0); MEAN CORPUSCULAR HGB CONC 31.6 g/dL (32.0-36.0); MEAN CORPUSCULAR VOLUME 86.1 fL (79-99); MONOCYTES % (AUTO) 6.3 % (3.0-13.0); NEUTROPHILS % (AUTO) 72.5 % (40.0-77.0); PLATELET COUNT (AUTO) 313 K/uL (130-400); RED BLOOD CELL COUNT(AUTO) 3.45 MIL/uL (4.50-6.20); WHITE BLOOD COUNT (AUTO) 7.9 K/uL (4.8-10.8)
[2020-11-13 07:25] LABS: ALBUMIN 2.4 g/dL (3.5-5.0); CREATININE 0.7 mg/dL (0.5-1.5); INR 1.2 (0.85-1.15); PROTHROMBIN TIME 12.9 SEC (9.6-11.6)
[2020-11-13 07:28] LABS: BILIRUBIN,TOTAL 0.8 mg/dL (0.2-1.0)
[2020-11-13] MEDS ORDERED: ALBUMIN (HUMAN) 25% 100 ML IV SCH (07:30)
[2020-11-13 07:32] LABS: POTASSIUM 2.4 mmol/L (3.5-5.1)
[2020-11-13] MEDS ORDERED: ALBUMIN (HUMAN) 25% 100 ML IV ONE ×2 (08:22→08:38)
[2020-11-13] MEDS ORDERED: POTASSIUM CHLORIDE 10% ELIXIR 20 MEQ/15 ML UDCUP ONE (09:45)
== END 2020-11-13 10:42 | disposition home or self-care (01) ==
LOC: EDH 06:36
DX: R18.8 Other ascites (principal); R10.9 Unspecified abdominal pain; R14.0 Abdominal distension (gaseous); R06.02 Shortness of breath; I10 Essential (primary) hypertension; Z87.891 Personal history of nicotine dependence; Z90.49 Acquired absence of other specified parts of digestive tract; Z88.0 Allergy status to penicillin; Z79.899 Other long term (current) drug therapy
CPT/HCPCS: 36415; 49082; 80053; 82140; 85025; 85610; 85730; 96365; 99285; P9046 ×2

== ENCOUNTER → 2020-11-18 | Outpatient (CLI) | payer OTHER, SELFPAY ==
[~2020-11-18] MED LIST changes: +ALBUMIN (HUMAN) 25% 200 ML IV SCH; +DICY20TA2 PO; +POTA-202 PO; -POTA20TA82 PO
[2020-11-18 15:16] LABS: APPEARANCE BODY FLUID CLOUDY (CLEAR); COLOR,BODY FLUID LT YELLOW (LT YELLOW); SPECIMENTYPE,BODY FLUID ASCITES; TOTAL VOLUME,BODY FLUID 9000 mL
[2020-11-18 15:17] LABS: BODY FLUID WBC 54 /cu. mm.
[2020-11-18 15:18] LABS: BODY FLUID RBC 37 /cu. mm.
[2020-11-18 15:29] LABS: BF LYMPHOCYTE 72 %; BF MONOCYTE 1 %
== END | disposition home or self-care (01) ==
LOC: RAH 10:07
PROVIDERS: ATTEND Internal Medicine Gastroenterology
DX: K70.31 Alcoholic cirrhosis of liver with ascites (principal); K31.89 Other diseases of stomach and duodenum; K76.0 Fatty (change of) liver, not elsewhere classified; D50.9 Iron deficiency anemia, unspecified
CPT/HCPCS: 49083; 87071; 87077; 87186; 87205; 89051; A4215; P9046; 96365; C1729

== ENCOUNTER → 2020-11-27 | Outpatient (CLI) | payer OTHER, SELFPAY ==
[~2020-11-27] MED LIST changes: -DICY20TA2 PO; -POTA-202 PO; +POTA20TA82 PO
[2020-11-27 09:16] LABS: BASOPHILS % (AUTO) 0.8 % (0.0-5.0); EOSINOPHILS % (AUTO) 3.7 % (0.0-8.0); HEMATOCRIT 30.1 % (42-54); LYMPHOCYTES % (AUTO) 16.3 % (21.0-51.0); MEAN CORPUSCULAR HEMOGLOBIN 26.5 pg (27.0-33.0); MEAN CORPUSCULAR HGB CONC 30.2 g/dL (32.0-36.0); MEAN CORPUSCULAR VOLUME 87.5 fL (79-99); MONOCYTES % (AUTO) 5.8 % (3.0-13.0); PLATELET COUNT (AUTO) 418 K/uL (130-400); RED BLOOD CELL COUNT(AUTO) 3.44 MIL/uL (4.50-6.20); RED CELL DISTRIBUTION WIDTH 14.6 % (11.0-15.5); WHITE BLOOD COUNT (AUTO) 8.3 K/uL (4.8-10.8)
[2020-11-27 09:27] LABS: INR 1.14 (0.85-1.15); PROTHROMBIN TIME 12.3 SEC (9.6-11.6)
[2020-11-27 09:31] LABS: ALBUMIN 2.6 g/dL (3.5-5.0); BILIRUBIN,TOTAL 0.7 mg/dL (0.2-1.0); CREATININE 0.7 mg/dL (0.5-1.5); TOTAL PROTEIN, SERUM 7.6 g/dL (6.0-8.3)
[2020-11-27 09:33] LABS: POTASSIUM 2.7 mmol/L (3.5-5.1)
[2020-11-27 14:00] LABS: APPEARANCE BODY FLUID CLOUDY (CLEAR); BODY FLUID WBC 69 /cu. mm.; COLOR,BODY FLUID OTHER (LT YELLOW); SPECIMENTYPE,BODY FLUID ASCITES; TOTAL VOLUME,BODY FLUID 10000 mL
[2020-11-27 14:01] LABS: BODY FLUID RBC 50 /cu. mm.
[2020-11-27 14:04] LABS: BF LYMPHOCYTE 28 %; BF MONOCYTE 68 %
== END | disposition home or self-care (01) ==
LOC: RAH 07:12
PROVIDERS: ATTEND Internal Medicine Gastroenterology
DX: K70.31 Alcoholic cirrhosis of liver with ascites (principal); Z79.899 Other long term (current) drug therapy; K31.89 Other diseases of stomach and duodenum; K76.0 Fatty (change of) liver, not elsewhere classified; D50.9 Iron deficiency anemia, unspecified; Z79.01 Long term (current) use of anticoagulants; Z72.89 Other problems related to lifestyle
CPT/HCPCS: 36415; 49083; 80053; 85025; 85610; 87071; 87205; 89051; A4215; P9046; 96365

== ENCOUNTER → 2020-12-02 | Outpatient (CLI) | payer OTHER ==
[2020-12-02 12:52] LABS: APPEARANCE BODY FLUID TURBID (CLEAR); COLOR,BODY FLUID OTHER (LT YELLOW); SPECIMENTYPE,BODY FLUID ASCITES
[2020-12-02 12:53] LABS: BODY FLUID RBC 11 /cu. mm.; BODY FLUID WBC 76 /cu. mm.; TOTAL VOLUME,BODY FLUID 11000 mL
[2020-12-02 13:13] LABS: BF EOSINOPHIL 1 %; BF LYMPHOCYTE 65 %; BF MESOTHELIAL 24 %; BF MONOCYTE 9 %
== END | disposition home or self-care (01) ==
LOC: RAH 07:22
PROVIDERS: ATTEND Internal Medicine Gastroenterology
DX: K70.31 Alcoholic cirrhosis of liver with ascites (principal); K76.0 Fatty (change of) liver, not elsewhere classified; K31.89 Other diseases of stomach and duodenum; D50.9 Iron deficiency anemia, unspecified; Z72.89 Other problems related to lifestyle; Z79.899 Other long term (current) drug therapy; Z79.01 Long term (current) use of anticoagulants
CPT/HCPCS: 49083; 87071; 87205; 89051; A4215; 96365

== ENCOUNTER → 2020-12-10 | Outpatient (CLI) | payer OTHER ==
[~2020-12-10] MED LIST changes: +DICY20TA2 PO; +POTA-202 PO; -POTA20TA82 PO
[2020-12-10 13:43] LABS: APPEARANCE BODY FLUID TURBID (CLEAR); COLOR,BODY FLUID OTHER (LT YELLOW); SPECIMENTYPE,BODY FLUID ASCITES; TOTAL VOLUME,BODY FLUID 12200 mL
[2020-12-10 13:44] LABS: BODY FLUID WBC 81 /cu. mm.
[2020-12-10 13:45] LABS: BODY FLUID RBC 31 /cu. mm.
[2020-12-10 13:54] LABS: BF LYMPHOCYTE 51 %; BF MESOTHELIAL 36 %; BF MONOCYTE 13 %
== END | disposition home or self-care (01) ==
LOC: RAH 07:20
PROVIDERS: ATTEND Internal Medicine Gastroenterology
DX: K70.31 Alcoholic cirrhosis of liver with ascites (principal); K76.0 Fatty (change of) liver, not elsewhere classified; D50.9 Iron deficiency anemia, unspecified; K31.89 Other diseases of stomach and duodenum; E78.6 Lipoprotein deficiency; Z72.89 Other problems related to lifestyle; Z79.899 Other long term (current) drug therapy; Z79.01 Long term (current) use of anticoagulants
CPT/HCPCS: 49083; 87071; 87205; 89051; A4215; P9046; 96365; C1729

== ENCOUNTER → 2020-12-17 | Outpatient (CLI) | payer OTHER, SELFPAY ==
[~2020-12-17] MED LIST changes: +ALBUMIN (HUMAN) 25% 100 ML IV PRN; -POTA-202 PO; +POTA20TA82 PO
[2020-12-17 13:04] LABS: BF LYMPHOCYTE 1 %; BF MONOCYTE 3 %; SPECIMENTYPE,BODY FLUID ASCITES
[2020-12-17 13:05] LABS: APPEARANCE BODY FLUID TURBID (CLEAR); COLOR,BODY FLUID OTHER (LT YELLOW)
[2020-12-17 13:06] LABS: TOTAL VOLUME,BODY FLUID 12.7 mL
[2020-12-17 13:08] LABS: BODY FLUID RBC 5 /cu. mm.; BODY FLUID WBC 982 /cu. mm.
== END | disposition home or self-care (01) ==
LOC: RAH 08:55
PROVIDERS: ATTEND Internal Medicine Gastroenterology
DX: K70.31 Alcoholic cirrhosis of liver with ascites (principal); D64.89 Other specified anemias; K31.89 Other diseases of stomach and duodenum; K76.0 Fatty (change of) liver, not elsewhere classified; D50.9 Iron deficiency anemia, unspecified; E87.6 Hypokalemia; Z79.01 Long term (current) use of anticoagulants; Z79.899 Other long term (current) drug therapy; Z88.0 Allergy status to penicillin; Z72.89 Other problems related to lifestyle
CPT/HCPCS: 49083; 87071; 87205; 89051; A4215; P9046; 96365

== ENCOUNTER 2020-12-18 16:11 | Emergency (ER) | payer OTHER ==
[~2020-12-18] VITALS: Ht 172.7 cm; Wt 60.8 kg
[~2020-12-18 16:11] MED LIST changes: -ALBUMIN (HUMAN) 25% 100 ML IV PRN; -ALBUMIN (HUMAN) 25% 200 ML IV SCH; -DICY20TA2 PO
[2020-12-18 16:45] LABS: BASOPHILS % (AUTO) 0.3 % (0.0-5.0); EOSINOPHILS % (AUTO) 1.2 % (0.0-8.0); HEMATOCRIT 25.3 % (42-54); LYMPHOCYTES % (AUTO) 7.3 % (21.0-51.0); MEAN CORPUSCULAR HEMOGLOBIN 26.3 pg (27.0-33.0); MEAN CORPUSCULAR HGB CONC 30.8 g/dL (32.0-36.0); MEAN CORPUSCULAR VOLUME 85.2 fL (79-99); MONOCYTES % (AUTO) 7.3 % (3.0-13.0); NEUTROPHILS % (AUTO) 83.5 % (40.0-77.0); PLATELET COUNT (AUTO) 361 K/uL (130-400); RED BLOOD CELL COUNT(AUTO) 2.97 MIL/uL (4.50-6.20); RED CELL DISTRIBUTION WIDTH 13.6 % (11.0-15.5); WHITE BLOOD COUNT (AUTO) 11.3 K/uL (4.8-10.8)
[2020-12-18] MEDS ORDERED: MORPHINE 2 MG SYG IVP ONE (16:45)
[2020-12-18 17:04] LABS: CREATININE 0.8 mg/dL (0.5-1.5); POTASSIUM 3.6 mmol/L (3.5-5.1)
[2020-12-18 17:07] VITALS: BP 110/78
[2020-12-18 17:09] LABS: ALBUMIN 2.5 g/dL (3.5-5.0); BILIRUBIN,TOTAL 0.6 mg/dL (0.2-1.0); TOTAL PROTEIN, SERUM 6.6 g/dL (6.0-8.3)
[2020-12-18] MEDS ORDERED: DICY20TA2 PO (18:04)
== END 2020-12-18 18:22 | disposition home or self-care (01) ==
LOC: EDH 16:23
DX: K74.60 Unspecified cirrhosis of liver (principal); R18.8 Other ascites; Z88.0 Allergy status to penicillin; Z88.8 Allergy status to other drugs, medicaments and biological substances; Z79.899 Other long term (current) drug therapy
CPT/HCPCS: 36415; 71045; 74176; 80053; 82550; 83605; 83690; 84484; 85025; 87040 ×2; 99285; P9046

== ENCOUNTER → 2020-12-24 | Outpatient (CLI) | payer OTHER, SELFPAY ==
[~2020-12-24] MED LIST changes: +ALBUMIN (HUMAN) 25% 200 ML IV SCH; +DICY20TA2 PO
[2020-12-24 13:28] LABS: SPECIMENTYPE,BODY FLUID ASCITES
[2020-12-24 13:29] LABS: APPEARANCE BODY FLUID TURBID (CLEAR); BODY FLUID RBC 208 /cu. mm.; BODY FLUID WBC 113 /cu. mm.; COLOR,BODY FLUID OTHER (LT YELLOW); TOTAL VOLUME,BODY FLUID 6000 mL
[2020-12-24 13:34] LABS: BF LYMPHOCYTE 84 %; BF MONOCYTE 6 %
== END | disposition home or self-care (01) ==
LOC: RAH 07:20
PROVIDERS: ATTEND Internal Medicine Gastroenterology
DX: K70.31 Alcoholic cirrhosis of liver with ascites (principal); D64.89 Other specified anemias; K31.89 Other diseases of stomach and duodenum; K76.0 Fatty (change of) liver, not elsewhere classified; D50.9 Iron deficiency anemia, unspecified; E87.6 Hypokalemia; Z79.01 Long term (current) use of anticoagulants; Z98.890 Other specified postprocedural states; Z79.899 Other long term (current) drug therapy; Z72.89 Other problems related to lifestyle; Z88.0 Allergy status to penicillin
CPT/HCPCS: 49083; 87071; 87205; 89051; A4215; P9046; 96365

== ENCOUNTER → 2020-12-30 | Outpatient (CLI) | payer OTHER ==
[~2020-12-30] MED LIST changes: -ALBUMIN (HUMAN) 25% 200 ML IV SCH
[2020-12-30 09:25] LABS: BASOPHILS % (AUTO) 0.4 % (0.0-5.0); EOSINOPHILS % (AUTO) 1.2 % (0.0-8.0); MEAN CORPUSCULAR HEMOGLOBIN 25.3 pg (27.0-33.0); MEAN CORPUSCULAR VOLUME 84.5 fL (79-99); MONOCYTES % (AUTO) 6.6 % (3.0-13.0); NEUTROPHILS % (AUTO) 80.4 % (40.0-77.0); PLATELET COUNT (AUTO) 417 K/uL (130-400); RED BLOOD CELL COUNT(AUTO) 2.96 MIL/uL (4.50-6.20); RED CELL DISTRIBUTION WIDTH 14.1 % (11.0-15.5); WHITE BLOOD COUNT (AUTO) 9.6 K/uL (4.8-10.8)
[2020-12-30 10:05] LABS: INR 1.28 (0.85-1.15); PROTHROMBIN TIME 13.6 SEC (9.6-11.6)
[2020-12-30 10:18] LABS: ALBUMIN 2.3 g/dL (3.5-5.0); BILIRUBIN,TOTAL 0.6 mg/dL (0.2-1.0); CREATININE 0.7 mg/dL (0.5-1.5); POTASSIUM 3.8 mmol/L (3.5-5.1)
[2020-12-30] MEDS: ALBUMIN (HUMAN) 25% 200 ML IV SCH ×2 (10:53→11:20)
[2020-12-30 12:32] LABS: APPEARANCE BODY FLUID TURBID (CLEAR); COLOR,BODY FLUID OTHER (LT YELLOW); SPECIMENTYPE,BODY FLUID ASCITES; TOTAL VOLUME,BODY FLUID 6200 mL
[2020-12-30 12:33] LABS: BODY FLUID RBC 389 /cu. mm.; BODY FLUID WBC 197 /cu. mm.
[2020-12-30 13:04] LABS: BF LYMPHOCYTE 70 %; BF MESOTHELIAL 11 %; BF MONOCYTE 11 %
== END | disposition home or self-care (01) ==
LOC: RAH 09:06
PROVIDERS: ATTEND Internal Medicine Gastroenterology
DX: K70.31 Alcoholic cirrhosis of liver with ascites (principal); D64.89 Other specified anemias; K31.89 Other diseases of stomach and duodenum; K76.0 Fatty (change of) liver, not elsewhere classified; D50.9 Iron deficiency anemia, unspecified; E87.6 Hypokalemia; Z79.01 Long term (current) use of anticoagulants; Z79.899 Other long term (current) drug therapy; Z98.890 Other specified postprocedural states; Z88.0 Allergy status to penicillin; Z72.89 Other problems related to lifestyle
CPT/HCPCS: 36415; 49083; 80053; 85025; 85610; 87071; 87205; 89051; A4215; P9046

== ENCOUNTER → 2021-01-07 | Outpatient (CLI) | payer OTHER ==
[~2021-01-07] MED LIST changes: +ALBUMIN (HUMAN) 25% 200 ML IV SCH
[2021-01-07 12:11] LABS: SPECIMENTYPE,BODY FLUID ASCITES
[2021-01-07 12:12] LABS: APPEARANCE BODY FLUID TURBID (CLEAR); BODY FLUID RBC 544 /cu. mm.; BODY FLUID WBC 175 /cu. mm.; COLOR,BODY FLUID OTHER (LT YELLOW); TOTAL VOLUME,BODY FLUID 5000 mL
[2021-01-07 12:24] LABS: BF BASOPHIL 1 %; BF LYMPHOCYTE 89 %; BF MESOTHELIAL 1 %; BF MONOCYTE 6 %
== END | disposition home or self-care (01) ==
LOC: RAH 07:29
PROVIDERS: ATTEND Internal Medicine Gastroenterology
DX: K70.31 Alcoholic cirrhosis of liver with ascites (principal); D64.89 Other specified anemias; K31.89 Other diseases of stomach and duodenum; K76.0 Fatty (change of) liver, not elsewhere classified; D50.9 Iron deficiency anemia, unspecified; E87.6 Hypokalemia; Z79.01 Long term (current) use of anticoagulants; Z79.899 Other long term (current) drug therapy; Z88.0 Allergy status to penicillin; Z98.890 Other specified postprocedural states; Z72.89 Other problems related to lifestyle
CPT/HCPCS: 49083; 87071; 87205; 89051; A4215; P9046; 96365

== ENCOUNTER → 2021-01-21 | Outpatient (CLI) | payer OTHER ==
[2021-01-21 18:29] LABS: APPEARANCE BODY FLUID CLOUDY (CLEAR); BODY FLUID WBC 10 /cu. mm.; COLOR,BODY FLUID COLORLESS (LT YELLOW); SPECIMENTYPE,BODY FLUID ASCITES; TOTAL VOLUME,BODY FLUID 4500 mL
[2021-01-21 18:30] LABS: BODY FLUID RBC 704 /cu. mm.
[2021-01-21 18:46] LABS: BF LYMPHOCYTE 7 %; BF MONOCYTE 1 %
== END | disposition home or self-care (01) ==
LOC: RAH 07:18
PROVIDERS: ATTEND Internal Medicine Gastroenterology
DX: K70.31 Alcoholic cirrhosis of liver with ascites (principal); K31.89 Other diseases of stomach and duodenum; K76.0 Fatty (change of) liver, not elsewhere classified; D50.9 Iron deficiency anemia, unspecified; M62.84 Sarcopenia; Z72.89 Other problems related to lifestyle; Z79.899 Other long term (current) drug therapy; Z79.01 Long term (current) use of anticoagulants
CPT/HCPCS: 49083; 87071; 87205; 89051; C1729; P9046; 96365

== ENCOUNTER → 2021-02-04 | Outpatient (CLI) | payer OTHER ==
[2021-02-04 12:57] LABS: SPECIMENTYPE,BODY FLUID ASCITES
[2021-02-04 12:58] LABS: APPEARANCE BODY FLUID TURBID (CLEAR); COLOR,BODY FLUID LT YELLOW (LT YELLOW); TOTAL VOLUME,BODY FLUID 2500 mL
[2021-02-04 12:59] LABS: BODY FLUID RBC 2700 /cu. mm.; BODY FLUID WBC 978 /cu. mm.
[2021-02-04 13:02] LABS: BF LYMPHOCYTE 16 %; BF MONOCYTE 1 %
[2021-02-04 14:15] LABS: BASOPHILS % (AUTO) 0.6 % (0.0-5.0); HEMATOCRIT 28.5 % (42-54); LYMPHOCYTES % (AUTO) 6.7 % (21.0-51.0); MEAN CORPUSCULAR HEMOGLOBIN 22.8 pg (27.0-33.0); MEAN CORPUSCULAR HGB CONC 27.7 g/dL (32.0-36.0); MEAN CORPUSCULAR VOLUME 82.4 fL (79-99); MONOCYTES % (AUTO) 6.2 % (3.0-13.0); NEUTROPHILS % (AUTO) 83.7 % (40.0-77.0); PLATELET COUNT (AUTO) 414 K/uL (130-400); RED BLOOD CELL COUNT(AUTO) 3.46 MIL/uL (4.50-6.20); RED CELL DISTRIBUTION WIDTH 15.5 % (11.0-15.5); WHITE BLOOD COUNT (AUTO) 19.8 K/uL (4.8-10.8)
== END | disposition home or self-care (01) ==
LOC: RAH 07:17
PROVIDERS: ATTEND Internal Medicine Gastroenterology
DX: K70.31 Alcoholic cirrhosis of liver with ascites (principal); K31.89 Other diseases of stomach and duodenum; D50.9 Iron deficiency anemia, unspecified; K76.0 Fatty (change of) liver, not elsewhere classified; M62.84 Sarcopenia; Z79.899 Other long term (current) drug therapy; Z79.01 Long term (current) use of anticoagulants; Z88.0 Allergy status to penicillin; Z72.89 Other problems related to lifestyle
CPT/HCPCS: 36415; 49083; 85025; 87071; 87205; 89051; C1729; 96365

== ENCOUNTER → 2021-05-19 | Outpatient (CLI) | payer OTHER ==
[~2021-05-19] MED LIST changes: -ALBUMIN (HUMAN) 25% 200 ML IV SCH; +IOHEXOL 350 MG/ML 100ML INFUS..BTL IV ONE; +POTA-202 PO; -POTA20TA82 PO
== END | disposition home or self-care (01) ==
LOC: RAH 09:22
PROVIDERS: ATTEND Internal Medicine Transplant Hepatology
DX: K74.60 Unspecified cirrhosis of liver (principal)
CPT/HCPCS: 74170; Q9967